=== PATIENT | male | born 1960 | race Caucasian/White ===

== ENCOUNTER 2021-03-10 18:44 | Emergency (ER) | payer OTHER, SELFPAY ==
[2021-03-10] MEDS ORDERED: Lidocaine 1% w/Epinephrine 1:100K 20 ML VIAL ONE (19:51)
== END 2021-03-10 20:17 | disposition home or self-care (01) ==
LOC: NAV ERS 18:44
DX: S60.451A Superficial foreign body of left index finger, initial encounter (principal); I10 Essential (primary) hypertension; W45.8XXA Other foreign body or object entering through skin, initial encounter
CPT/HCPCS: 99283